=== PATIENT | female | born 1985 | race Caucasian/White ===

== ENCOUNTER → 2017-03-30 07:00 | Observation (INO) ==
[2017-03-30 06:03] VITALS: BP 134/76
--- NOTE | 2017-03-30 06:19 | OB/GYN Progress Note ---
Date of Encounter: 03/30/17 Time of Encounter: 06:27 - Assessment and Plan (1) 37 weeks gestation of Current Visit: Yes Status: Acute Urinalysis - pending NST - reactive Vaginal exam - records received and reviewed. Anticipate discharge home and follow up with routine care as scheduled on Thursday with Dr Turner. (2) complicated by subutex maintenance, antepartum Current Visit: Yes Status: Acute [facility] reviewed. Patient has had two 5 day Rx of 8mg tablets, 1/2 tablet every 12 hours. (3) Alcohol abuse affecting Current Visit: Yes Status: Acute Patient admits to alcohol abuse prior to Qualifiers: Trimester: third trimester Qualified Code(s): O99.313 - Alcohol use complicating , third trimester; F10.10 - Alcohol abuse, uncomplicated; F10.10 - Alcohol abuse, uncomplicated (4) Chronic hypertension affecting Current Visit: Yes Status: Acute Blood pressure stable during this visit (5) Hypothyroidism affecting Current Visit: Yes Status: Acute Patient state she is taking her thyroid medication as ordered Qualifiers: Trimester: third trimester Qualified Code(s): O99.283 - Endocrine, nutritional and metabolic diseases complicating , third trimester; E03.9 - Hypothyroidism, unspecified; E03.9 - Hypothyroidism, unspecified; E03.9 - Hypothyroidism, unspecified (6) Gestational diabetes mellitus (GDM) affecting Current Visit: Yes Status: Acute Patient states she is to learn about her diagnosis on Thursday at her appointment. Subjective - Subjective Principal diagnosis: Vaginal spotting Interval history: Ms Fraga is a at 37 weeks gestation per patient report with vaginal spotting that occurred with wiping. She states it was bright red and has only happened once. She denies vaginal discharge, headaches, visual disturbances, epigastric pain, and cramping/contractions. She denies intercourse in the past 48 hours. She states she has a history of ETOH use and used meth once during her . She states that she was started on subutex 2 weeks ago and is not taking it as ordered. She denies any other drug use. She states this has been complicated by HTN, Hypothyroidism, and Gestational Diabetes. She denies getting any diabetic testing supplies and states she just found out. Her next scheduled appointment with Dr Ramirez is on Thursday per patient report. Antepartum ROS: vaginal bleeding, movement normal, no loss of fluid, no contractions Objective - Vital Signs Vital Signs: Vital Signs Pulse Resp BP 03/30/17 05:51 102 16 134/76 Intake and Output 03/29/17 03/29/17 03/30/17 15:59 23:59 07:59 Other: Weight 96.9 kg Patient Weight 03/30/17 23:59 Weight 96.9 kg - Exam FHR: auscultation normal, category 1 (Baseline 125-130) Auscultation: bilateral: normal Abdomen: Present: normal appearance, soft, gravid. Absent: tenderness Uterus: Present: normal. Absent: firm, bogginess, tenderness Cervical dilation: 1 Cervix effacement: 80 station: -2
[2017-03-30 06:37] LABS: Bilirubin,Urine Negative (Negative); Blood,Urine Negative (Negative); Clarity,Urine Clear (Clear); Color,Urine Yellow (Yellow); Glucose,Urine (UA) Normal (Normal); Ketones,Urine Negative (Negative); Leukocyte Esterase,Urine Negative (Negative); Nitrite,Urine Negative (Negative); Protein,Urine Negative (Neg-Trace); Specific Gravity,Urine 1.019 (1.010-1.025); Urobilinogen,Urine Normal (Normal)
[2017-03-30 06:43] LABS: Amphetamine Screen,Urine Negative ng/mL (Cutoff=1000); Barbiturate Screen,Urine Negative ng/mL (Cutoff=200); Benzodiazepines Screen,Urine Negative ng/mL (Cutoff=200); Cannabinoid Screen,Urine Negative ng/mL (Cutoff = 50); Cocaine Screen,Urine Negative ng/mL (Cutoff= 300); Opiate Screen,Urine Negative ng/mL (Cutoff=300); Phencyclidine Screen,Urine Negative ng/mL (Cutoff=25)
== END | disposition home or self-care (01) ==
LOC: 1NENULAB
PROVIDERS: ADMIT Obstetrics & Gynecology; ATTEND Obstetrics & Gynecology